=== PATIENT | female | born 1950 | race Caucasian/White ===

== ENCOUNTER 2022-12-28 18:23 | Emergency (ER) | payer MEDICARE, BC, SELFPAY ==
[2022-12-28 18:30] VITALS: BP 148/64; PULSE 72; RESP 16; TEMP 35.8; O2SAT 98; BMI 26.2
--- NOTE | 2022-12-28 18:57 | ED.GENADULT ---
HPI - General Adult General Chief complaint: Bug Bite Stated complaint: Possible wasp sting Time Seen by Provider: 12/28/22 18:34 History of Present Illness HPI narrative: This 72-year-old female comes in with a swollen upper lip that began just prior to arrival. She states that she was outdoors all day at a park and a bit after drinking from a can she began to have swelling of her upper lip only. She does not have any other symptoms. She states that this happened once before during COVID season. She does report recurrent episodes of red itchy skin in various areas. She does not have any such symptoms now. She states that she does take 1 Benadryl tablet daily. She does not report any shortness of breath or swelling in her mouth. Related Data Home Medications Medication Instructions Recorded Confirmed lisinopril 5 mg tablet 5 mg PO DAILY 12/28/22 12/28/22 rosuvastatin 20 mg tablet 20 mg PO QPM 12/28/22 12/28/22 Previous Rx's Medication Instructions Recorded methylprednisolone 4 mg tablets in See Rx Instructions PO .COMPLEX 12/28/22 a dose pack (Medrol (Arnie)) #21 ea Allergies Allergy/AdvReac Type Severity Reaction Status Date / Time No Known Drug Allergies Allergy Verified 12/28/22 18:28 Review of Systems Status of ROS: Reports: 10 or more systems reviewed and unremarkable except as noted in History and below Narrative: Constitutional: No fevers, no weight gain or loss. Eyes: No discharge. No vision changes. HENT: No congestion, no sore throat, no ear pain. Cardiovascular: No chest pain, no palpitations. Respiratory: No shortness of breath, no wheezes, no cough. Gastrointestinal: No abdominal pain, no vomiting, no diarrhea. Genitourinary: No dysuria, no hematuria. Musculoskeletal: Normal range of motion. Skin: No rashes, no pruritis. Angioedema in the upper lip as described above. Neurological: No dizziness, weakness, sensory change, speech change. Endo/Heme/Allergies: No bruising or bleeding. No polydipsia. Pysch: no suicidality, no anxiety, no insomnia. All other systems reviewed and are negative. Exam Narrative: Exam Narrative: Constitutional: Well-developed, well-nourished, no acute distress. HEENT: Normocephalic, atraumatic. Neck: Normal range of motion. Nontender. Supple. Heart: Regular. No murmurs. Normal rate. Intact distal pulses. Lungs: Clear to auscultation. No chest discomfort. No wheezes, rhonchi, or rales. Abdomen: Normal bowel sounds. Nontender. No rebound tenderness. Genitalia: Deferred. Back: No midline tenderness. Normal range of motion. Extremities: Normal range of motion. No injury. Skin: Intact. No rash. Warm. No erythema or pallor. Angioedema involving the upper lip only. Neurologic: No altered sensation. No weakness. Alert and oriented. Psychiatric: No suicidality. No anxiety or depression. No insomnia. Nursing notes and vitals signs are reviewed. Const: Vital Signs, click to edit/add: Vital Signs - 24 hr 12/28/22 18:30 Temperature 96.5 F L Pulse Rate [Pulse Oximeter] 72 Respiratory Rate 16 Blood Pressure [Ri ght Upper Arm] 148/64 H Pulse Oximetry 98 Oxygen Delivery Me thod Room Air Course Vital Signs Vital signs: Initial Vital Signs Temperature 96.5 F L 12/28/22 18:30 Temperature Source Temporal Artery Scan 12/28/22 18:30 Pulse Rate 72 12/28/22 18:30 Respiratory Rate 16 12/28/22 18:30 Blood Pressure 148/64 H 12/28/22 18:30 Blood Pressure Mean 92 12/28/22 18:30 Blood Pressure Position Sitting 12/28/22 18:30 Pulse Oximetry 98 12/28/22 18:30 Oxygen Delivery Method Room Air 12/28/22 18:30 Vital Signs Temperature 96.5 F L 12/28/22 18:30 Pulse Rate 72 12/28/22 18:30 Respiratory Rate 16 12/28/22 18:30 Blood Pressure 148/64 H 12/28/22 18:30 Pulse Oximetry 98 12/28/22 18:30 Oxygen Delivery Method Room Air 12/28/22 18:30 Temperature 96.5 F L 12/28/22 18:30 Pulse Rate 72 12/28/22 18:30 Respiratory Rate 16 12/28/22 18:30 Blood Pressure 148/64 H 12/28/22 18:30 Pulse Oximetry 98 12/28/22 18:30 Oxygen Delivery Method Room Air 12/28/22 18:30 Medical Decision Making MDM Narrative Medical decision making narrative: This patient comes in with swelling of her upper lip typical of pollen induced angioedema. The may be some other allergen that triggered this type of symptoms and she has had similar symptoms in the past. The patient's vital signs are in normal range and she is in no acute distress. She does not have any compromise of her airway. Her oropharynx appears normal otherwise. The patient received an oral dose of dexamethasone. She does have diabetes and understands that this will cause her blood sugars to elevate temporarily. A prescription for Medrol Dosepak is also provided. I recommended that she use antihistamines such as Claritin, Zyrtec, or Gin a daily. Studies seem to indicate that Gin performs better than the others. I did advise her regarding signs or symptoms that would indicate a need for return and re-evaluation. Discharge Plan Discharge Clinical Impression: Angioedema Patient Disposition: Home, Self-Care Condition: Stable Additional Instructions: Take Medrol Dosepak as prescribed. Use Gin daily. Follow up with MD or return if worsening. Prescriptions: New methylprednisolone [Medrol (Arnie)] 4 mg tablets,dose pack See Rx Instructions .ROUTE .COMPLEX Qty: 21 0RF Rx Instructions: orally per package directions No Action lisinopril 5 mg tablet 5 mg PO DAILY rosuvastatin 20 mg tablet 20 mg PO QPM Follow Up/Referrals: Makeda Britt MD [Primary Care Provider] - Stand Alone Forms: [employer] Info Instructions
== END 2022-12-28 19:14 | disposition home or self-care (01) ==
LOC: ED 19:02
PROVIDERS: Emergency Provider Emergency Medicine Emergency Medical Services; PCP Family Medicine
DX: T63.441A Toxic effect of venom of bees, accidental (unintentional), initial encounter (principal); K13.0 Diseases of lips
CPT/HCPCS: 99282; 99283; 99284

== ENCOUNTER 2024-10-25 07:36 | Emergency (ER) | payer MEDICARE, BC, SELFPAY ==
[2024-10-25] VITALS (8 sets, daily range): BP systolic 112–143; BP diastolic 58–87; PULSE 54–69; RESP 16–18; TEMP 36.6; O2SAT 97–99; BMI 25.5
--- OUTSIDE RECORDS SUMMARY | 2024-10-25 07:39 | XMS_ITS | Clinical Summary ---
Author Organization [facility] Address [address] [place] [address] Care Team Providers Care Encoding Machine Operator Name Role Phone Makeda Britt MD Primary Care Provide r Criselda Moore RD Unavailable + Aaron Evans MD Unavailable Rakesh Camacho MD Unavailable Allergies Active Allergy Reactions Criticality Noted Date Comments Lisinopril Edema 05/03/2024 Medications ASPIRIN 81 MG TAB, DELAYED RELEASE take 1 tablet (81 mg) by oral route once daily 0 12/24/19 07 Active multivitamin (MVI) tablet Take 1 tablet by mouth once daily. 0 06/03/19 14 Active lancets (ONE TOUCH DELICA) 33 gauge miscIndications: Type 1 diabetes mellitus without complication (HC) As directed. Dispense item covered by pt ins. E11.9 IDDM type II - Test 6 times/day. Reason: Insulin Pump 600 Each 2 02/13/20 19 Active diclofenac topical (VOLTAREN) 1 % gelIndications:A cute pain of left shoulder,Neck pain Use daily 1-2 times per week for neck pain 50 g 10/20/19 22 Active triamcinolone (ARISTOCORT; KENALOG) 0.1 % cream APPLY TO AFFECTED AREA ON ARMS 1-2X DAILY FOR 2 WEEKS REPEAT NEEDED FOR FLARES 02/16/20 22 Active blood sugar diagnostic (Contour Next Test Strips) stripIndications :Type 1 diabetes mellitus without complication (HC) Dispense item covered by pt ins. E10.9 IDDM type I - Test 2 times/day. 200 Each 3 08/07/19 23 Active calcium carbonate-vitami n D3, 500 mg-400 units, (OSCAL 500 + D) tablet Take 1 Tablet by mouth two times daily before meals. 0 09/21/19 23 Active HumaLOG U-100 Insulin 100 unit/mL injectionIndicat ions:Type 1 diabetes mellitus without complication (HC) infuse up to 50 units daily via pump 50 mL 3 10/28/19 24 Active glucagon (Gvoke HypoPen 2-Pack) 1 mg/0.2 mL atInIndications: Type 1 diabetes mellitus without complication (HC) Inject subcutaneous. 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 90 Tablet 3 05/03/20 24 Active lamoTRIgine 200 mg tabletIndication s:Bipolar II disorder (HC) Take 1 Tablet (200 mg) by mouth once daily. 90 Tablet 3 05/13/20 24 Active Omnipod 5 G6-G7 Pods, Gen 5, crtgIndications: Type 1 diabetes mellitus without complication (HC) CHANGE POD EVERY 3 DAYS DIRECTED 30 Each 3 05/18/20 24 Active losartan 25 mg tabletIndication s:HTN (hypertension) Take 1 Tablet (25 mg) by mouth once daily. 90 Tablet 09/18/19 25 Active halobetasol 0.05 % creamIndications :Lichen sclerosus Apply topically to affected area(s) two times daily. 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 1 Each 10/16/19 25 Active Dexcom G6 Salesperson Burial Plots for continuous blood glucose monitor (CGM)Indications :Type 1 diabetes mellitus without complication (HC) To be used to read blood sugars follow public safety dispatcher directions. 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 50 g 3 08/06/19 25 025 Discontin ued(Reord er (E-cancel not sent)) sensor (Dexcom G6 Sensor) for continuous blood glucose monitor (CGM)Indications :Type 1 diabetes mellitus without complication (HC) As directed. 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 9 Each 3 10/15/19 25 025 Discontin ued(Reord er (E-cancel not sent)) Active Problems Problem Noted Date Diagnosed Date Ascending aorta dilatation 03/15/2021 Dyslipidemia 04/25/2019 Bicuspid aortic valve 10/13/2012 Lichen sclerosus 08/01/2011 Vitamin D deficiency 07/20/2010 CKD (chronic kidney disease) stage 3, GFR 30-59 ml/min 07/10/2010 Personal history of colonic polyps 01/27/2009 Overview (03/31/2024): Colonoscopy 12/2008 normal repeat in 5 years Colonoscopy 12/2013 polyp repeat in 5 years Colonoscopy 01/2019 polyp, repeat in 5 years Colonoscopy 03/2024 TA, repeat in 7 years Type I (juvenile type) diabe tae mellitus without mention of complication, not stated as uncontrolled 04/30/2007 Overview (08/31/2010): diagnosis 2006 Melanoma of skin, site unspecified 12/23/2006 BRADYCARDIA Bipolar disorder, in full re mission, most recent episode depressed Resolved Problems Problem Noted Date Diagnosed Date Resolved Date Type II or unspecified type diabetes mellitus without mention of complication, not stated as uncontrolled 12/23/2006 04/30/2007 Dizziness and giddiness 12/01 Tachycardia, unspecified Encounters Date Type Department Care Team Description 10/15/2024 Telephone [facility] [address] [place] [address] Aaron Evans MD Medication Management (Dexcom G7) 10/13/2024 Refill [facility] [address] [place] [address] Aaron Evans MD Refill Request (Dexcom G7 sensors ) 10/07/2024 12:35 PM CDT Office Visit [facility] [address] [place] [address] Aaron Evans MD Diabetes (8 month follow up) 10/07/2024 Telephone [facility] [address] [place] [address] Aaron Evans MD Lab (Diabetes Type I) 10/07/2024 Travel 10/02/2024 Travel 09/20/2024 Telephone [facility] [address] [place] [address] Aaron Evans MD Questions (PDM ) 09/17/2024 10:25 AM CDT Office Visit [facility] [address] [place] [address] Bhargav Gasca MD Diabetes (omni pod refills ) 09/16/2024 Travel 08/31/2024 Telephone [facility] [address] [facility] [address] [facility] [address] [place] [address] Aaron Evans MD Prior Authorization (Omnipod 5 G6-G7 Pods, Gen 5, crtg APPROVED 06/02/2024-08/31/2025/ ) from Last 3 Months Immunizations Immunization Administration Dates Next Due AMB Influenza, IIV3 (Age >=3 years)(Flu Clinic Only) 02/15/2013 AMB Influenza, IIV4 PF (=>6 mos Flulaval,Fluzone Fluarix)(Flu Clinic Only) 02/24/2015,02/18/2014 Amb Influenza, Inactivated A IIV4 (Age 65+ Years) Preserv Free 02/23/2020 COVID-19 vaccine (Moderna 100mcg/0.5mL) PF, MDV 08/27/2020,07/30/2020 HepA-HepB (Twinrix) 03/15/2022,07/23/2021 Influenza, High-dose Inactivated 02/20/2024 Influenza, High-dose Quadriv alent Inactivated 03/07/2023 Influenza, IIV3 (Age 6-35 mos) 04/09/2011 Influenza, IIV3 (Age >=3 years) 02/16/20 13,02/19/2012,04/09/2011,03/02,03/18/2008 04/09/2012 Influenza, IIV4 03/08/2016,02/24/2015,02/18/2014 Influenza, Inactivated AIIV4 (Age 65+ Years) Preserv Free 02/11/2022,03/15/2021 Influenza, Inactivated IIV3 (Age 65+ Years) Preserv Free 02/19/2019,01/30/2018,02/10/2017 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,06/23/2024 Pneumococcal Poly,23-Valent (Pneumovax) 01/30/2018,05/18/2013,03/18/2008,08/0 10/2007 Pneumococcal conj 13-Valent (Prevnar 13) 01/16/2017 RSV, Recombinant ADJ Reconst ituted (Arexvy 120MCG/0.5mL) 03/28/2023 Td, Preservative Free (age > = 7 Years) 12/17/2004 Tdap 06/07/2022,11/06/2011 Typhoid (injectable) 07/23/2021 Yellow Fever 07/23/2021 Zoster (Shingrix-RZV, recombinant) 11/21/2017, Zoster (Zostavax-ZVL, live) 11/06/2011 Family History Medical History Relation Name Comments Anesthesia Problem Father Ron Farfan a cert ain drug makes him slow to wake up Diabetes Father Ron Farfan Diet Control led Heart Disease Father Ron Farfan CHF, 2 011 Cancer-breast No Family History Cancer-ovarian No Family History Relation Name Status Comments Brother Ron Farfan Jr Alive Daughter Kelley Martinez Alive Father Ron Farfan Alive Maternal Grandfather Maternal Grandmother Mother Stacy Farfan (Age 84) Paternal Grandfather Paternal Grandmother Sister 1 Alondra Christianson Alive Sister 2 Anita Oconnor Alive Son Mauro Martinez Alive Social History Tobacco Use Types Packs/Day Years Used Date Smoking Tobacco: Never Smokeless Tobacco: Never Tobacco Cessation:Counseling Given: Yes Alcohol Use Standard Drinks/Week Comments Not Currently 0 (1 standard drink = 0.6 oz pur e alcohol) occ. PHQ-2 Answer Date Recorded PHQ-2 TOTAL SCORE 0 05/13/2024 Social Connections Answer Date Recorded Do you often feel lonely or isolated from those around you? 0 05/13/2024 Financial Resource Strain Answer Date R ecorded Difficulty of Paying Living Expenses 3 05/13/2024 Difficulty of Paying Living Expenses Not on file 05/13/2024 Food Insecurity Answer Date Recorded Do you worry your food will run out before you are able to buy more? 1 05/13/2024 Transportation Needs Answer Date Record ed Does lack of transportation keep you from medica l appointments? 1 05/13/2024 Does lack of transportation keep you from work, meetings or getting things that you need? 1 05/13/2024 Housing Stability Answer Date Recorded What is your housing situation today? 1 05/13/2024 Utilities Answer Date Recorded Do you have trouble paying f or utilities (for example, heat, electricity, water, phone)? 1 05/13/2024 Comments No Sex and Gender Information Value Date Recorded Sex Assigned at Not on file Legal Sex Female 5:25 AM STACK CLERK Gender Identity Not on file Sexual Orientation Not on file Occupation Industry Job Start Date Job End Date Not on file Not on file Not on file Not on file Obstetrics History Para Term AB IAB SAB Ectopic Multiple Livin g Live Births 6 2 2 4 4 2 Date Outcome GA Total Labor Labor/2nd/3rd Weight Sex Type Anes PTL Margie A1 A5 Name Clin Term Term SAB SAB SAB SAB Last Filed Vital Signs Vital Sign Reading Time Taken Comments Blood Pressure 104/62 10/07/2024 12:35 PM CDT Pulse 72 10/07/2024 12:35 PM CDT Temperature 36.8 C (98.3 F) 03/25/2023 10:18 AM CDT Respiratory Rate 18 05/03/2024 8:15 AM STACK CLERK Oxygen Saturation 98% 09/17/2024 10:20 AM CDT Inhaled Oxygen Concentration - - Weight 62.3 kg (137 lb 4.8 oz) 10/07/2024 12:35 PM CDT Height 155.2 cm (5' 1.1) 10/07/2024 12:35 PM CD T Body Mass Index 25.86 10/07/2024 12:35 PM CDT Plan of Treatment Upcoming Encounters Date Type Department Care Team (Late st Contact Info) Description 04/04/2025 9:00 AM STACK CLERK Orders Only [facility] [address] [place] [address] Lab, [place] 04/11/2025 10:55 AM STACK CLERK Office Visit [facility] [address] [place] [address] Aaron Evans MD [address] [place] [address] Health Maintenance Due Date Last Done Comments Hepatitis B series for 19+ ( 3 of 3 - Hep B Twinrix 3-dose series) 08/13/2022 03/15/2022, 07/23/2021 COVID-19 vaccine series ( season) 2024 02/20/2024, 11/14/2023, 03/07/2023, Additional history exists Medicare Wellness for age 65+ 05/14/2025, 04/15/2023, 03/15/2022, Additional history exists Depression screening for age 12+ 05/25/2025 05/25/2024, 05/13/2024, 05/10/2024, Additional history exists Mammogram for age 45-75 05/25/2025 05/25/20, 05/21/2023, 05/14/2022, Additional history exists BMI (ht and wt on same day) for age 18+ 10/07/2025 10/07/2024, 05/13/2024, 05/03/2024, Additional history exists Lipids for age 45-75 06/17/2029 06/17/2024, 04/15/2023, 06/17/2022, Additional history exists Colonoscopy through age 75 03/29/203103/29, 02/17/2019, 02/17/2019, Additional history exists Tetanus booster 06/07/2032 06/07/2022, 11/2011, 12/17/2004 Zoster (shingles) series for age 50+ Completed 11/21/2017, 09/27/2017, 11/06/2011 Pneumococcal series for age 50+ Completed 01/30/2018, 01/16/2017, 05/18/2013, Additional history exists Hepatitis C screening for ag e 18-79 Completed 01/29/2019 DEXA/DXA scan for age 65+ Completed 2021, 01/16/2017, 08/20/2011 Tdap Completed 06/07/2022, 11/06/2011 RSV vaccine for adults or Completed 03/28/2023 Influenza Vaccine Completed 02/20/2024, , 03/15/2021, Additional history exists Procedures Procedure Name Priority Date/Time Associated Diagnosis Comments HEMOGLOBIN A1C Routine 09/17/2024 11:02 AM CDT Type 1 diabetes mellitus without complication (HC) LIPID PANEL W REFLEX MEASURED LDL Routine 06/17/2024 7:13 AM STACK CLERK CAD in [place]hoe artery XR MAMMO [place] BILAT SCREEN Routine 05/25/2024 9:52 AM STACK CLERK Visit for screening mammogram COLONOSCOPY SCREENING Routine 03/29/2024 12:00 AM CDT Personal history of colonic polyps XR DXA BONE DENSITY 2 SITES AXIAL AND 1 SITE PERIPHERAL Routine 10/03/2021 3:41 PM CDT Right knee pain, unspecified chronicity Pathological fracture in other disease, other site, initial encounter for fracture (HC) Closed fracture of medial portion of right tibial plateau with routine healing, subsequent encounter ANTI HCV Routine 01/29/2019 1:25 PM CDT Encounter for hepatitis C screening test for low risk patient from Last 3 Months or Most Recently Relevant to Health Maintenance Results * (ABNORMAL) HEMOGLOBIN A1C (09/17/2024 11:02 AM CDT) HEMOGLOBIN A1C 9.6(H) <5.7 % [facility] Comment: For someone without known diabetes, a hemoglobin A1c value of 6.5% or greater indicates that they may have diabetes and this should be confirmed with a follow-up test. For someone with known diabetes, a value <7% indicates that their diabetes is well controlled and a value greater than or equal to 7% indicates suboptimal control. A1c targets should be individualized based on duration of diabetes, age, comorbid conditions, and other considerations. Currently, no consensus exists regarding use of hemoglobin A1c for diagnosis of diabetes for children. Blood BLOOD SPECIMEN / Unknown 09/17/2024 11:02 AM CDT 09/17/2024 11:03 AM CDT Narrative [facility] - 09/18/2024 4:22 AM CDT FASTING:NO FASTING: NO us Bhargav Gasca MD CHEMISTRY Final Result [facility] [address] [place] [address], [facility] [address] [place] [address] * LIPID PANEL W REFLEX MEASURED LDL (06/17/2024 7:13 AM STACK CLERK) CHOLESTEROL, TOTAL 172 <200 mg/dL [facility] HDL CHOLESTEROL 97 > OR = 50 mg/dL [facility] TRIGLYCERIDES 59 <150 mg/dL [facility] LDL-CHOLESTEROL 61 mg/dL (calc) [facility] Comment: Reference range: <100 Desirable range <100 mg/dL for primary prevention; <70 mg/dL for patients with CHD or diabetic patients with > or = 2 CHD risk factors. LDL-C is now calculated using the Pradeep calculation, which is a validated novel method providing better accuracy than the Friedewald equation in the estimation of LDL-C. Josh SS et al. KE. 2013;310(19): 6639-4919 (http://education.InExchange/faq/FUV036) CHOL/HDLC RATIO 1.8 <5.0 (calc) [facility] [facility] NON HDL CHOLESTEROL 75 <130 mg/dL (calc) [facility] Comment: For patients with diabetes plus 1 major ASCVD risk factor, treating to a non-HDL-C goal of <100 mg/dL (LDL-C of <70 mg/dL) is considered a therapeutic option. Blood BLOOD SPECIMEN / Unknown 06/17/2024 7:13 AM STACK CLERK 06/17/2024 7:14 AM STACK CLERK us Makeda Britt MD CHEMISTRY Final Result [employer] [facility] [address] [facility] [place] [address], [place] [phone] [facility] [address] [place] [address] * XR MAMMO BELGICA BILAT SCREEN (05/25/2024 9:52 AM STACK CLERK) Anatomical Region Laterality Modality BREASTS, Breast Left, Breast Right Bilateral Mammography Impressions 05/27/2024 2:42 PM STACK CLERK There is no radiographic evidence for malignancy. Recommend annual mammograms. MAMMOGRAM ASSESSMENT: ACR 1 Negative PATIENTS: You will also receive a letter with your examination results in an easy to read format. If you have questions about your results, please contact your referring provider. Narrative 05/27/2024 2:42 PM STACK CLERK For Patients: As a result of the Century Cures Act, medical imaging exams and procedure reports are released immediately into your electronic medical record. You may view this report before your referring provider. If you have questions, please contact your health care provider. XR MAMMO BELGICA BILAT SCREEN [[id number]] CLINICAL HISTORY: This is an asymptomatic 73 y.o. patient. INDICATION FOR EXAM: Mammogram Screening. TECHNIQUE: CC & MLO views were obtained. This study was evaluated with the assistance of Computer-Aided Detection. Breast Tomosynthesis was used in interpretation. COMPARISON FILM: Yes 05/21/23 [facility] 05/14/22 [facility] FINDINGS: The breasts are heterogeneously dense, which may obscure small masses. There are no dominant masses, suspicious micro calcifications or areas of architectural distortion. us Makeda Britt MD MAMMO Final Result * COLONOSCOPY SCREENING (03/29/2024 12:00 AM CDT) Josh Phillips MD GI PROCEDURE ORD Final Re sult * (ABNORMAL) XR DXA BONE DENSITY 2 SITES AXIAL AND 1 SITE PERIPHERAL (10/03/2021 3:41 PM CDT) Anatomical Region Laterality Modality LUMBAR SPINE Other Impressions 10/08/2021 3:13 PM CDT Osteoporosis with statistically significant worsening of BMD since last DXA. RECOMMENDATIONS: The National Osteoporosis Foundation recommends pharmacologic treatment for patients with T-scores of -2.5 or less, patients with prior history of fragility fractures, or patients with 10-year probability of greater than 3% at hips or greater than 20% of suffering major osteoporotic fractures. Recommend continued optimization of calcium and vitamin D intake through dietary means and/or supplementation and regular exercise. Consider pharmacologic therapy for osteoporosis. Follow-up bone density reading in 2 years if therapy initiated to assess therapeutic efficacy. Tenisha Ortiz PA-C Narrative 10/08/2021 3:13 PM CDT For Patients: Results are automatically released to your [facility] ([facility]) account once available, in compliance with federal regulations. This means that you may see your results before your provider has had a chance to review them. Please allow 2-3 business days for your provider to comment on the results. XR DXA Bone Mineral Density (BMD) EXAM LOCATION: [facility] [address] [facility] [address] PATIENT NAME: Opal Martinez DATE OF : 1950 EXAM DATE: 10/03/2021 REQUESTING PROVIDER: Pio Hunt MD GENDER AT : female HEIGHT: 5' 1 (09/26/2021) WEIGHT: 144 lb (09/28/2021) MENOPAUSAL STATUS: Postmenopausal RACE/ETHNICITY: White RISK FACTORS: Diabetes Type 1, Family History of Hip Fracture (parental), Renal Failure and White Race CURRENT MEDICATION FOR BONE LOSS: NONE INDICATION: Follow-up of existing osteopenia COMPARISON DATE(S): 2016 DXA scans are compared to prior studies for a patient only when the two (or more) studies were performed on the same scanner. It is not possible to compare data generated on one scanner to data from another because there are not standards in DXA equipment. This applies even if the two scanners are made by the same public safety dispatcher. PROCEDURE: Dual-energy x-ray absorptiometry performed with routine technique. Reporting is completed in the form of a T-score. The T-score represents the standard deviation from peak bone mass based on young healthy adult. A Z-score is used for diagnosis in premenopausal women, and for men under the age of 50. FINDINGS: RESULT LUMBAR SPINE L2-L4 BMD: 0.810 g/cm2 T-Score: - 3.3 Z-Score: - 1.6 Change from prior in 2017: Decrease 14.1%. RESULTS FEMUR Left femoral neck BMD: 0.812 g/cm2 T-Score: - 1.6 Z-Score: + 0.1 Change from prior in 2017: Decrease 2.6%. Right femoral neck BMD: 0.720 g/cm2 T-Score: - 2.3 Z-Score: - 0.6 Change from prior in 2017: Decrease 9.1%. Left hip BMD: 0.848 g/cm2 T-Score: - 1.3 Z-Score: + 0.2 Change from prior in 2017: Decrease 8.9%. Right hip BMD: 0.762 g/cm2 T-Score: - 1.9 Z-Score: - 0.5 Change from prior in 2017: Decrease 11.1%. RESULT FOREARM Left Forearm distal radius BMD: 0.480 g/cm2 T-Score: - 4.5 Z-Score: - 2.7 Change from prior: None WHO criteria: Normal: T-score at or above -1 SD Osteopenia: T-score between -1.1 and -2.4 SD Osteoporosis: T-score at or below -2.5 SD us Pio Hunt MD DEXA Final Resu lt * ANTI HCV (01/29/2019 1:25 PM CDT) HEPATITIS C ANTIBODY Non-React derek Non-React derek 01/29/2019 7:53 PM CDT [facility] Comment:Antibodies to HCV no t detected; does not exclude the possibility of exposure to HCV. Blood BLOOD SPECIMEN / Unknown Venipuncture / Unknown 01/29/2019 1:25 PM CDT 01/29/2019 1:26 PM CDT us Makeda Britt MD SEND OUTS Final Result [facility] [address] [place] [address], [place] from Last 3 Months or Most Recently Relevant to Health Maintenance Insurance [facility] MEDICARE PB ONLY MEDICARE PART B HB ONLY MEDICARE PART A HB ONLY Care Teams Encoding Machine Operator Relationship Specialty Start Date End Date Makeda Britt [place] [place] [address] PCP - General 09/20/[address] [facility] [address] [place] [address] Channel Marketing Manager 09/27/21 Aaron Evans MD [address] [facility] [address] [place] [address] Endocrinology 10/16/22 Rakesh Camacho MD [address] [facility] [address] [place] [address] Cardiovascular Disease 04/21/24
--- NOTE | 2024-10-25 07:52 | ED.GENADULT ---
HPI - General Adult General Chief complaint: Allergic Reaction Stated complaint: allergic reaction on lips and body Time Seen by Provider: 10/25/24 07:45 History of Present Illness HPI narrative: Patient is a 74-year-old female who this morning woke up with a swollen upper lip and some hive-like rash about her body. She is not sure what is causing this. She has a history of some mouth swelling with an GENESIS-inhibitor. She has not been on that for a while she was on lisinopril. She has history of hypertension. She has no shortness of breath. She has no internal abdominal pain or chest pain. No breathing difficulty. No tongue swelling. Related Data Home Medications ?Medication ?Instructions ?Recorded ?Confirmed rosuvastatin 20 mg tablet 20 mg PO QPM 12/28/22 10/25/24 glucagon 1 mg/0.2 mL subcutaneous mg subcut DIRECTED diabetes 10/25/24 auto-injector (Gvoke HypoPen mellitus 2-Pack) halobetasol propionate 0.05 % applic topical BID 10/25/24 topical cream insulin lispro 100 unit/mL 0 - 50 unit subcut DAILY 10/25/24 10/25/24 subcutaneous solution (Humalog U-100 Insulin) lamotrigine 200 mg tablet 200 mg PO DAILY 10/25/24 10/25/24 losartan 25 mg tablet 25 mg PO DAILY 10/25/24 10/25/24 Previous Rx's ?Medication ?Instructions ?Recorded prednisone 20 mg tablet 20 mg PO BID #10 tabs 10/25/24 Allergies Allergy/AdvReac Type Severity Reaction Status Date / Time lisinopril Allergy Severe Verified 10/25/24 07:45 Review of Systems Status of ROS: Reports: 6 or more systems reviewed and unremarkable except as noted in History and below [facility] Social History Smoking Status: Never smoker Do you use any of these nicotine containing products: None Second hand tobacco smoke exposure: No How often do you have a drink containing alcohol: 2-4 times a month AUDIT-C Alcohol total score: 2 Non-prescribed substance use: denies use service: No Exam Narrative: Exam Narrative: Objective: Patient's vital signs were within normal limits O2 sats 98% room air She has a swollen upper lip mostly on the left side of midline Tongue is not swollen She is alert orient x3 She has got some urticarial rash on her chest and abdomen. She describes it on her legs as well. Her lungs are very clear to auscultation. Pulses regular. Const: Vital Signs, click to edit/add: Vital Signs - 24 hr 10/25/24 07:40 10/25/24 08:12 10/25/24 08:15 Temperature 98 F Pulse Rate 69 62 Pulse Rate [Right Pulse Oximeter] 65 Respiratory Rate 18 Blood Pressure Blood Pressure [Ri ght Upper Arm] 143/80 H Pulse Oximetry 99 97 99 Oxygen Delivery Me thod Room Air 10/25/24 08:30 10/25/24 08:32 10/25/24 08:45 Temperature Pulse Rate 56 L 56 L 56 L Pulse Rate [Right Pulse Oximeter] Respiratory Rate 16 Blood Pressure 112/87 Blood Pressure [Ri ght Upper Arm] Pulse Oximetry 98 98 97 Oxygen Delivery Me thod Room Air 10/25/24 09:00 10/25/24 09:01 Temperature Pulse Rate 55 L 54 L Pulse Rate [Right Pulse Oximeter] Respiratory Rate 16 Blood Pressure 117/58 L Blood Pressure [Ri ght Upper Arm] Pulse Oximetry 97 98 Oxygen Delivery Me thod Room Air Course Vital Signs Vital signs: Initial Vital Signs Temperature 98 F 10/25/24 07:40 Temperature Source Temporal Artery Scan 10/25/24 07:40 Pulse Rate 65 10/25/24 07:40 Pulse Rhythm Regular 10/25/24 07:40 Pulse Strength 3+ Normal 10/25/24 07:40 Respiratory Rate 18 10/25/24 07:40 Blood Pressure 143/80 H 10/25/24 07:40 Blood Pressure Mean 101 10/25/24 07:40 Pulse Oximetry 99 10/25/24 07:40 Oxygen Delivery Method Room Air 10/25/24 07:40 Vital Signs Temperature 98 F 10/25/24 07:40 Pulse Rate 65 10/25/24 07:40 Respiratory Rate 18 10/25/24 07:40 Blood Pressure 143/80 H 10/25/24 07:40 Pulse Oximetry 99 10/25/24 07:40 Oxygen Delivery Method Room Air 10/25/24 07:40 Temperature 98 F 10/25/24 07:40 Pulse Rate 54 L 10/25/24 09:01 Respiratory Rate 16 10/25/24 09:01 Blood Pressure 117/58 L 10/25/24 09:01 Pulse Oximetry 98 10/25/24 09:01 Oxygen Delivery Method Room Air 10/25/24 09:01 Medications Administered Medications: Discontinued Medications Generic Name Dose Route Start Last Admin Trade Name Joanna PRN Reason Stop Dose Admin Diphenhydramine HCl 50 mg 10/25/24 07:51 10/25/24 07:57 Diphenhydramine 25 Mg Capsule PO 10/25/24 07:52 50 mg ONCE ONE Administration Prednisone 50 mg 10/25/24 07:51 10/25/24 07:57 Prednisone 10 Mg Tablet PO 10/25/24 07:52 50 mg ONCE ONE Administration Medical Decision Making MDM Narrative Medical decision making narrative: 74-year-old female with history of allergic reaction, she apparently had some changes likely due to lisinopril. She has been off that now. She is on losartan, rosuvastatin, Lamotrigine, insulin. The patient reports some urticarial rash. She is not sure of the offending agent. At this point she does not have tongue swelling. I think we can give her Benadryl and prednisone. In observe for appear to time in the ED. likely discharge on prednisone and Benadryl. Will have her rethink through her day and potential allergic exposures., new foods, new detergent etc.. Have her follow up with regular doctor next few days, return to ED sooner worsening changes increasing swelling. Will should be observed in the ED for appeared of time as mention. Also because of the association between angioedema and rare risk of that from losartan, she should stop her losartan then consult with her doctor as described above. Discharge Plan Discharge Clinical Impression: Allergic reaction Patient Disposition: Home w/ Parent or Adult Condition: Improved Additional Instructions: Prednisone and Benadryl 25 mg 3 x day x 3 days as described. Watch carefully, return if any tongue swelling, difficulty breathing or other concern. Follow up with regular doctor next 3-4 days for reassessment. Stop losartan Activity Level: Light activity Discharge Diet: Regular Prescriptions: New prednisone 20 mg tablet 20 mg PO BID Qty: 10 0RF No Action rosuvastatin 20 mg tablet 20 mg PO QPM lamotrigine 200 mg tablet 200 mg PO DAILY losartan 25 mg tablet 25 mg PO DAILY halobetasol propionate 0.05 % cream topical BID insulin lispro [Humalog U-100 Insulin] 100 unit/mL solution 0 - 50 unit subcut DAILY Gvoke HypoPen 2-Pack 1 mg/0.2 mL auto-injector subcut DIRECTED Follow Up/Referrals: Makeda Britt MD [Primary Care Provider, Family Practice] Stand Alone Forms: [employer] Info Instructions
[2024-10-25] MEDS: predniSONE 10 MG TABLET 50 MG PO (07:57)
[2024-10-25] MEDS: diphenhydrAMINE 25 MG CAPSULE 50 MG PO (07:57)
== END 2024-10-25 09:20 | disposition home or self-care (01) ==
LOC: ED 08:17
PROVIDERS: Emergency Provider Family Medicine; PCP Family Medicine
DX: L50.0 Allergic urticaria (principal); T46.4X5A Adverse effect of angiotensin-converting-enzyme inhibitors, initial encounter
CPT/HCPCS: 99283; A9270; J7512

== ENCOUNTER 2024-10-26 06:03 | Emergency (ER) | payer MEDICARE, BC, SELFPAY ==
--- OUTSIDE RECORDS SUMMARY | 2024-10-26 06:05 | XMS_ITS | Clinical Summary ---
Author Organization [email or web address] Address [address] [place] [id number] Care Team Providers Care Neurology Physician Name Role Phone Makeda Britt MD Primary Care Provide r Criselda Moore RD Unavailable + Aaron Evans MD Unavailable Rakesh Camacho MD Unavailable [phone] Allergies Active Allergy Reactions Criticality Noted Date [...] rosuvastatin (CRESTOR) 20 mg tabletIndication s:CAD in [place] artery Take 1 Tablet (20 mg) by [...] be used to read blood sugars, follow intranet support directions. Change every 10 days 9 Each 3 10/16/19 25 Active Dexcom G7 [employer] for continuous blood glucose monitor (CGM)Indications :Type 1 diabetes mellitus with stage 3b chronic kidney disease (HC) To be used to read blood sugars follow intranet support directions. 1 Each 10/16/19 25 Active Dexcom G6 [employer] for continuous blood glucose monitor (CGM)Indications :Type 1 diabetes mellitus without complication (HC) To be used to read blood sugars follow intranet support directions. 1 Each 1 09/22/19 22 025 [...] be used to read blood sugars, follow intranet support directions. 9 Each 3 10/08/19 25 025 Discontin ued(Reord er (E-cancel not sent)) Dexcom G7 Sensor for continuous blood glucose monitor (CGM)Indications :Type 1 diabetes mellitus with stage 3b chronic kidney disease (HC) To be used to read blood sugars, follow intranet support directions. 9 Each 3 10/15/19 25 025 [...] Type Department Care Team Description 10/15/[address] [facility] [address] [place] [address] Aaron Evans MD Medication Management (Dexcom G7) 10/13/[address] [facility] [address] [place] [address] Aaron Evans MD Refill Request (Dexcom G7 sensors ) 10/07/2024 12:35 PM CDT Office Visit [facility] [address] [place] [address] Aaron Evans MD Diabetes (8 month follow up) 10/07/[address] [facility] [address] [place] [address] Aaron Evans MD Lab (Diabetes Type I) 10/07/2024 Travel 10/02/2024 Travel 09/20/[address] [facility] [address] [place] [address] Aaron Evans MD Questions (PDM ) 09/17/2024 10:25 AM CDT Office Visit [facility] [address] [place] [address] Bhargav Gasca MD Diabetes (omni pod refills ) 09/16/2024 Travel 08/31/[address] [facility] [address] [facility] [address] [facility] [address] [place] [address] Aaron Evans MD Prior Authorization (Omnipod 5 [...] IIV3 (Age 65+ Years) Preserv Free 02/19/2019,01/30/2018,02/10/2017 Austrian Encephalitis 07/22/2024,06/23/2024 Pneumococcal Poly,23-Valent (Pneumovax) 01/30/2018,05/18/2013,03/18/2008,08/0 10/2007 [...] on file Legal Sex Female 5:25 AM [employer] Gender Identity Not on file Sexual Orientation [...] CDT Respiratory Rate 18 05/03/2024 8:15 AM [employer] Oxygen Saturation 98% 09/17/2024 10:20 AM CDT Inhaled Oxygen Concentration - - Weight 62.3 kg (137 lb 4.8 oz) 10/07/2024 12:35 PM CDT Height 155.2 cm (5' 1.1) 10/07/2024 12:35 PM CD T Body Mass Index 25.86 10/07/2024 12:35 PM CDT Plan of Treatment Upcoming Encounters Date Type Department Care Team (Late st Contact Info) Description 10/27/2024 11:15 AM CDT Office Visit [facility] [address] [place] [address] Bhargav Gasca MD [address] [place] [address] 04/04/2025 9:00 AM [employer] Orders Only [facility] [address] [place] [address] [place], [place] 04/11/2025 10:55 AM INSPECT[employer] Office Visit [facility] [address] [facility] [address] [place] [address] Aaron Evans MD [address] [facility] [address] [place] [address] Health Maintenance Due Date Last Done Comments [...] Additional history exists Tetanus booster 06/07/2032 06/07/2022, 06/11/2011, 12/17/2004 Zoster (shingles) series for age 50+ [...] REFLEX MEASURED LDL Routine 06/17/2024 7:13 AM [employer] CAD in [place] artery XR MAMMO BELGICA BILAT SCREEN Routine 05/25/2024 9:52 AM [employer] Visit for screening mammogram COLONOSCOPY SCREENING Routine [...] AM CDT) HEMOGLOBIN A1C 9.6(H) <5.7 % [facility] Comment: For someone without known diabetes, [...] 09/18/2024 4:22 AM CDT FASTING:NO FASTING: NO Bhargav Gasca MD CHEMISTRY Final Result [employer] [facility] [facility] [address] [place] [address], [facility] [address] [place] [address] * LIPID PANEL W REFLEX MEASURED LDL (06/17/2024 7:13 AM INSPECTOR [employer]) [facility] CHOLESTEROL, TOTAL 172 <200 mg/dL [facility] HDL CHOLESTEROL 97 > OR = 50 mg/dL [facility] TRIGLYCERIDES 59 <150 mg/dL [facility] LDL-CHOLESTEROL 61 mg/dL (calc) [facility] Comment: Reference range: <100 Desirable range <100 mg/dL for primary prevention; <70 mg/dL for patients with CHD or diabetic patients with > or = 2 CHD risk factors. LDL-C is now calculated using the Josh-Christina calculation, which is a validated novel method providing better accuracy than the Friedewald equation in the estimation of LDL-C. Josh SS et al. KE. 2013;310(19): 0521-3127 (http://education.[employer]/faq/JDQ734) CHOL/HDLC RATIO 1.8 <5.0 (calc) [facility] NON HDL CHOLESTEROL 75 <130 mg/dL (calc) [facility] Comment: For patients with diabetes plus 1 major ASCVD risk factor, treating to a non-HDL-C goal of <100 mg/dL (LDL-C of <70 mg/dL) is considered a therapeutic option. Blood BLOOD SPECIMEN / Unknown 06/17/2024 7:13 AM [employer] 06/17/2024 7:14 AM INSPECT[employer] Makeda Britt MD CHEMISTRY Final Result [facility] [address] [place] [address], [facility] [address] [place] [address] * XR MAMMO BELGICA BILAT SCREEN (05/25/2024 9:52 AM INSPECTOR [employer]AMES) Anatomical Region Laterality Modality BREASTS, Breast Left, Breast Right Bilateral Mammography Impressions 05/27/2024 2:42 PM [employer] There is no radiographic evidence for malignancy. Recommend annual mammograms. MAMMOGRAM ASSESSMENT: ACR 1 Negative PATIENTS: You will also receive a letter with your examination results in an easy to read format. If you have questions about your results, please contact your referring provider. Narrative 05/27/2024 2:42 PM [employer] For Patients: As a result of the Cures Act, medical imaging exams and procedure reports are released immediately into your electronic medical record. You may view this report before your referring provider. If you have questions, please contact your health care provider. XR MAMMO BELGICA BILAT SCREEN [[id number]] CLINICAL HISTORY: This is an asymptomatic 73 y.o. patient. INDICATION FOR EXAM: Mammogram Screening. TECHNIQUE: CC & MLO views were obtained. This study was evaluated with the assistance of Computer-Aided Detection. Breast Tomosynthesis was used in interpretation. COMPARISON FILM: Yes 05/21/23 [facility] 05/14/22 [facility] FINDINGS: The breasts are heterogeneously dense, which [...] Patients: Results are automatically released to your [employer] ([employer]) account once available, in compliance with federal regulations. This means that you may see your results before your provider has had a chance to review them. Please allow 2-3 business days for your provider to comment on the results. XR DXA Bone Mineral Density (BMD) EXAM LOCATION: [address] [address] PATIENT NAME: Opal Martinez DATE OF : [...] two scanners are made by the same intranet support. PROCEDURE: Dual-energy x-ray absorptiometry performed with routine [...] derek Non-React derek 01/29/2019 7:53 PM CDT [email or web address] Comment:Antibodies to HCV no t detected; does not exclude the possibility of exposure to HCV. Blood BLOOD SPECIMEN / Unknown Venipuncture / Unknown 01/29/2019 1:25 PM CDT 01/29/2019 1:26 PM CDT us Makeda Britt MD SEND OUTS Final Result [facility] [address] [place] [address], [place] from Last 3 Months or Most Recently Relevant to Health Maintenance Insurance [facility] MEDICARE PB ONLY MEDICARE PART B HB ONLY MEDICARE PART A HB ONLY Care Teams Neurology Physician Relationship Specialty Start Date End Date Makeda Britt MD [address] [place] [address] PCP - General 09/20/[address] [place] [address] Circular Head Saw Operator 09/27/21 Aaron Evans MD [address] [place] [address] Endocrinology 10/16/22 Rakesh Camacho MD [address] [place] [address] Cardiovascular Disease 04/21/24
[2024-10-26 06:10] VITALS: BP 136/71; PULSE 85; RESP 18; TEMP 36.8; O2SAT 98; BMI 25.5
[2024-10-26 06:26] VITALS: O2SAT 98
--- NOTE | 2024-10-26 06:36 | ED.GENADULT ---
HPI - General Adult General Chief complaint: Skin/Abscess/Foreign Body Stated complaint: Allergic rash Time Seen by Provider: 10/26/24 06:21 Source: patient Mode of arrival: ambulatory Limitations: no limitations History of Present Illness HPI narrative: 74-year-old female presents to the emergency department because her hives worsened after initially improving yesterday. No swelling of the lips, tongue, airway. No difficulty breathing or swallowing. She was evaluated yesterday, notes are reviewed. She was started on prednisone and Benadryl after evaluation. She took her Benadryl last night but it does not sound as though she took the prednisone since she left the ED, was due to take her dose this morning. Hives started getting worse at around 4:00 a.m.. Mainly in the flexor creases around her underwear line and elbow flexor creases and wrist. Nothing on the face, neck or chest. Does admit that they were worse yesterday but they had been improving after the Benadryl and prednisone been our starting to worsen again. Still no airway affected. No GI changes, no hypotension. Suspected she was reacting to her losartan which she has since stopped. She is due to see her primary care doctor soon to re-evaluate her blood pressure and make a change away from the losartan. Reports that her blood sugars have been running a little high, 2-300 but she has been managing with her insulin appropriately. Past medical history reviewed, insulin-dependent diabetes, hypertension, mental health issues. Medications reviewed. ROS notable for the hives only, otherwise denies times 12 systems. Related Data Home Medications ?Medication ?Instructions ?Recorded ?Confirmed rosuvastatin 20 mg tablet 20 mg PO QPM 12/28/22 10/26/24 glucagon 1 mg/0.2 mL subcutaneous 1 mg subcut DIRECTED PRN 10/25/24 10/26/24 auto-injector (Gvoke HypoPen diabetes mellitus 2-Pack) halobetasol propionate 0.05 % 1 applic topical BID 10/25/24 10/26/24 topical cream insulin lispro 100 unit/mL 0 - 50 unit subcut DAILY 10/25/24 10/26/24 subcutaneous solution (Humalog U-100 Insulin) lamotrigine 200 mg tablet 200 mg PO DAILY 10/25/24 10/26/24 Previous Rx's ?Medication ?Instructions ?Recorded prednisone 20 mg tablet 20 mg PO BID #10 tabs 10/25/24 Allergies Allergy/AdvReac Type Severity Reaction Status Date / Time lisinopril Allergy Intermediate Hives Verified 10/26/24 06:13 losartan Allergy Mild Hives/Welts Verified 10/26/24 06:13 [facility] Social History Smoking Status: Never smoker Do you use any of these nicotine containing products: None Second hand tobacco smoke exposure: No How often do you have a drink containing alcohol: 2-4 times a month AUDIT-C Alcohol total score: 2 Non-prescribed substance use: denies use service: No Exam Const: Vital Signs, click to edit/add: Vital Signs - 24 hr 10/26/24 06:10 10/26/24 06:26 Temperature 98.2 F Pulse Rate [Right Pulse Oximeter] 85 Respiratory Rate 18 Blood Pressure [Le ft Upper Arm] 136/71 Pulse Oximetry 98 98 Oxygen Delivery Me thod Room Air Documenting provider has reviewed patient's vital signs: yes Common normals: no apparent distress General appearance: cooperative and well kempt HENMT: Common normals: normocephalic, moist oral mucous membranes and oropharynx normal Head and scalp: normocephalic Face and sinus: normal facial exam Mouth: oral and palatal mucosa normal Eye: Common normals: conjunctivae normal General eye: normal appearance of both eyes Conjunctiva: conjunctiva(e) normal Neck & C-Spine: Common normals: full ROM and no lymphadenopathy General: normal visual inspection Resp: Common normals: normal respiratory effort, no use of accessory muscles and clear to auscultation bilaterally Effort & inspection: able to speak in complete sentences Auscultation: clear to auscultation bilaterally Cardio: Common normals: regular rate, regular rhythm, S1 normal heart sound, S2 normal heart sound and no murmurs Rate: regular rate Rhythm: regular rhythm Heart sounds: S1 normal and S2 normal GI: Common normals: Normal to inspection, nondistended, normoactive bowel sounds present and soft to palpation Palpation: soft Extremity: Common normals: normal to inspection and normal capillary refill Psych: Common normals: speech normal Appearance: well kempt Activity/motor behavior: appropriate eye contact Speech: normal speech Insight: insight good Judgement: judgment good Skin: Narrative: Mild hives on the hip flexor creases, right elbow and wrist, a few diffusely on the lower abdomen but nothing on the chest, neck, face, airway. Course Course ED Course: Mild hives with no signs of anaphylaxis, airway compromise. Counseled patient unfortunately, it may take several days or even up to a couple of weeks for the hives to go away. There can be some regression between the 1st couple doses of prednisone and overall hives do not always resolve in a perfectly linear fashion. There are no signs of any danger right now. We reviewed the indications come back to the ER including respiratory compromise, lip swelling, tongue swelling, facial swelling, severe dizziness, weakness mental status changes or other similar concerns. She will stay off of the losartan. She will continue taking the Benadryl 3 times daily scheduled. I also counseled patient that she can take a 4th dose at some point during the day if she feels like she needs it. A lot of people will take a double dose at bedtime because the we morning hours often bring the worst times. She will stay on the prednisone and manage her blood sugars accordingly. I have encouraged her to keep her follow-up appointment with her primary care provider to discuss an alternative blood pressure medication. Might be best to do this once she is off of the prednisone. All questions answered, written instructions provided. Vital Signs Vital signs: Initial Vital Signs Temperature 98.2 F 10/26/24 06:10 Temperature Source Temporal Artery Scan 10/26/24 06:10 Pulse Rate 85 10/26/24 06:10 Respiratory Rate 18 10/26/24 06:10 Blood Pressure 136/71 10/26/24 06:10 Blood Pressure Mean 92 10/26/24 06:10 Blood Pressure Position Sitting 10/26/24 06:10 Pulse Oximetry 98 10/26/24 06:10 Oxygen Delivery Method Room Air 10/26/24 06:10 Vital Signs Temperature 98.2 F 10/26/24 06:10 Pulse Rate 85 10/26/24 06:10 Respiratory Rate 18 10/26/24 06:10 Blood Pressure 136/71 10/26/24 06:10 Pulse Oximetry 98 10/26/24 06:10 Oxygen Delivery Method Room Air 10/26/24 06:10 Temperature 98.2 F 10/26/24 06:10 Pulse Rate 85 10/26/24 06:10 Respiratory Rate 18 10/26/24 06:10 Blood Pressure 136/71 10/26/24 06:10 Pulse Oximetry 98 10/26/24 06:26 Oxygen Delivery Method Room Air 10/26/24 06:10 Discharge Plan Discharge Clinical Impression: Urticaria Patient Disposition: Home, Self-Care Condition: Stable Instructions: Urticaria (ED) Additional Instructions: As we discussed, the hives may come and go over the next few days. It may actually take if couple of weeks for them to go away entirely which can of course be quite frustrating. I do want you to stay on the dose of prednisone that you are currently prescribed. You are doing a good job of managing her blood sugars in return. As far as the Benadryl, we want you to automatically take 1 pill 3 times a day for 3 days but you may also take a 4th tablet at any point in the day if your symptoms become worse. Often, people will take a double dose at bedtime since the wee morning hours are the most common time for the hives to return. Heat, friction will often make the hives temporarily worse as well, it is okay to apply ice packs but try to avoid itching as much as possible. You will need to see her primary care doctor to discuss a different blood pressure medication if you are stopping the losartan. Tomorrow is a little bit soon, I would recommend that you push it back a couple of days if you are able to ensure that you can further discuss alternative workup for the hives if they have not started to improve by that time. He should come back to the emergency room if you have difficulty breathing, difficulty swallowing, swelling of the lips, tongue and or throat. Try to avoid heavy exercise for at least the next 24 hours. Activity Level: Activity as Tolerated Discharge Diet: Regular Prescriptions: No Action rosuvastatin 20 mg tablet 20 mg PO QPM lamotrigine 200 mg tablet 200 mg PO DAILY halobetasol propionate 0.05 % cream 1 applic topical BID insulin lispro [Humalog U-100 Insulin] 100 unit/mL solution 0 - 50 unit subcut DAILY Gvoke HypoPen 2-Pack 1 mg/0.2 mL auto-injector 1 mg subcut DIRECTED PRN (Reason: diabetes mellitus) prednisone 20 mg tablet 20 mg PO BID Qty: 10 0RF Follow Up/Referrals: Makeda Britt MD [Primary Care Provider, Family Practice] Stand Alone Forms: MyHealth Info Instructions
[2024-10-26 06:47] VITALS: BP 128/74; PULSE 80; RESP 18; TEMP 36.8; O2SAT 98
[2024-10-26 06:48] VITALS: BP 128/74; PULSE 80; RESP 18; TEMP 36.8
== END 2024-10-26 06:48 | disposition home or self-care (01) ==
PROVIDERS: Emergency Provider Family Medicine; PCP Family Medicine
DX: L50.9 Urticaria, unspecified (principal)
CPT/HCPCS: 94761; 99283